=== PATIENT | male | born 1965 | race Two or more races ===

== ENCOUNTER 2025-04-17 21:26 | Inpatient (IN) | payer OTHER ==
[~2025-04-17] VITALS: Ht 177.8 cm; Wt 90.7 kg
[2025-04-17 21:26] VITALS: BP 125/73
[2025-04-17] MEDS ORDERED: TRANEXAMIC ACID 1,000 MG/10 ML VIAL ONE ×2 (21:50→22:45)
[2025-04-17] MEDS ORDERED: HYDROMORPHONE 1 MG/1 ML DISP.SYRIN ONE (21:55)
[2025-04-17] MEDS ORDERED: ONDANSETRON 4 MG/2 ML VIAL ONE (21:55)
[2025-04-17] MEDS: TRANEXAMIC ACID 1,000 MG/10 ML VIAL IR ONE ×2 (22:01→22:50)
[2025-04-17] MEDS: HYDROMORPHONE 1 MG/1 ML DISP.SYRIN IV ONE (22:03)
[2025-04-17] MEDS: IV NORMAL SALINE 1000 ML BAG IV ONE (22:03)
[2025-04-17] MEDS: ONDANSETRON 4 MG/2 ML VIAL IV ONE (22:03)
[2025-04-17 22:06] LABS: PLATELET COUNT (AUTO) 84 K/uL (152-348); RED BLOOD CELL COUNT(AUTO) 2.51 MIL/uL (4.06-5.63); RED CELL DISTRIBUTION WIDTH 15.3 % (12.1-16.2); WHITE BLOOD COUNT (AUTO) 4.5 K/uL (3.6-10.2)
[2025-04-17 22:11] LABS: CREATININE 1.0 mg/dL (0.6-1.3); SODIUM SERUM 139.0 mmol/L (136-145); UREA NITROGEN, BLOOD 32.0 mg/dL (7-18)
[2025-04-17 22:16] LABS: ASPARTATE AMINOTRANSFERASE 37.0 U/L (15-37); TOTAL PROTEIN, SERUM 6.6 g/dL (6.4-8.2)
[2025-04-17] MEDS ORDERED: LIDOCAINE 1%-EPI 1:100,000 20 ML VIAL ONE (22:39)
[2025-04-17] MEDS: LIDOCAINE 1%-EPI 1:100,000 20 ML VIAL IJ ONE (22:50)
[2025-04-17] MEDS ORDERED: AMIN30LI27 PO (22:54)
[2025-04-17] MEDS ORDERED: SENN-302 PO (22:54)
[2025-04-17] MEDS ORDERED: FOLI1TAB94 PO (22:54)
[2025-04-17] MEDS ORDERED: FURO20TA4 PO (22:54)
[2025-04-17] MEDS ORDERED: RIFA550T PO (22:54)
[2025-04-17] MEDS ORDERED: PROP20TA7 PO (22:54)
[2025-04-17] MEDS ORDERED: PANT40TA49 PO (22:54)
[2025-04-17] MEDS ORDERED: POTA-88 PO (22:54)
[2025-04-17] MEDS ORDERED: ASCO500C18 PO (22:54)
[2025-04-17] MEDS ORDERED: MAGN400T26 PO (22:54)
[2025-04-17] MEDS ORDERED: MELA5TAB21 PO (22:54)
[2025-04-17] MEDS ORDERED: MULT-1045 PO (22:54)
[2025-04-17] MEDS ORDERED: SPIR25TA PO (22:54)
[2025-04-17] MEDS ORDERED: CHOL200074 PO (22:54)
[2025-04-17] MEDS ORDERED: TEMA15CA PO (22:54)
[2025-04-17] MEDS ORDERED: DOCU100C36 PO (22:54)
[2025-04-17] MEDS ORDERED: LACT10SO58 PO (22:54)
[2025-04-17] MEDS ORDERED: CYAN50009 PO (22:54)
[2025-04-18] MEDS ORDERED: MAGNESIUM HYDROXIDE 30 ML LIQUID UDC PO PRN (00:30)
[2025-04-18 04:55] VITALS: BP 136/72; TEMP 97.9; O2SAT 100
[2025-04-18 06:49] LABS: PLATELET COUNT (AUTO) 70 K/uL (152-348); RED CELL DISTRIBUTION WIDTH 15.2 % (12.1-16.2); WHITE BLOOD COUNT (AUTO) 2.9 K/uL (3.6-10.2)
[2025-04-18 06:58] LABS: RED BLOOD CELL COUNT(AUTO) 2.22 MIL/uL (4.06-5.63)
[2025-04-18] MEDS: PANTOPRAZOLE SODIUM 40 MG TABLET.DR PO SCH (06:58)
[2025-04-18 07:02] LABS: CREATININE 0.7 mg/dL (0.6-1.3); SODIUM SERUM 141.0 mmol/L (136-145); UREA NITROGEN, BLOOD 25.0 mg/dL (7-18)
[2025-04-18] MEDS: SPIRONOLACTONE 25 MG TABLET PO SCH (08:38)
[2025-04-18] MEDS: DOCUSATE SODIUM 100 MG CAPSULE PO SCH (08:38)
[2025-04-18] MEDS: FOLIC ACID 1 MG TABLET PO SCH (08:39)
[2025-04-18] MEDS: FUROSEMIDE 20 MG TABLET PO SCH (08:39)
[2025-04-18] MEDS: LACTULOSE 20 G/30 ML LIQUID UDC PO SCH (08:39)
[2025-04-18] MEDS: MULTIVITAMINS,THERAPEUTIC TABLET PO SCH (08:40)
[2025-04-18] MEDS: MAGNESIUM OXIDE 400 MG TABLET PO SCH (08:40)
[2025-04-18] MEDS: CYANOCOBALAMIN 1,000 MCG TABLET PO SCH (08:40)
[2025-04-18] MEDS: ASCORBIC ACID 500 MG TABLET PO SCH (08:40)
[2025-04-18] MEDS: RIFAXIMIN 550 MG TABLET PO SCH (08:42)
[2025-04-18] MEDS ORDERED: PROPRANOLOL HCL 20 MG TABLET PO SCH ×2 (09:00)
[2025-04-18] MEDS ORDERED: AMINO ACIDS PO SCH (09:00)
[2025-04-18] MEDS ORDERED: PROTEIN HYDROLYS PO SCH (09:00)
[2025-04-18 09:17] LABS: LYMPHOCYTES % (MANUAL) 0 % (20-40); NEUTROPHILS % (MANUAL) 0 % (42-75)
[2025-04-18] MEDS ORDERED: ACET-73 PO (10:08)
[2025-04-18] MEDS ORDERED: ONDA4TAB5 PO (10:08)
[2025-04-18] MEDS ORDERED: SENN8.6T19 PO (10:08)
[2025-04-18] MEDS: MAGNESIUM OXIDE 400 MG TABLET PO ONE (10:19)
[2025-04-18 10:53] VITALS: BP 118/52; TEMP 98; O2SAT 97
[2025-04-18 16:00] VITALS: BP 120/60; TEMP 98; O2SAT 96
[2025-04-18] MEDS: PROPRANOLOL HCL 10 MG TABLET PO SCH (17:00)
[2025-04-18] MEDS: SENNOSIDES/DOCUSATE SODIUM TABLET PO SCH (17:05)
[2025-04-18] MEDS: PROTEIN SUPPLEMENT (PROSTAT) 30 ML LIQUID PO SCH (17:05)
[2025-04-18] MEDS: ONDANSETRON 4 MG/2 ML VIAL IV PRN (17:14)
[2025-04-18 19:00] VITALS: BP 121/63; TEMP 98.4; O2SAT 100
[2025-04-18] MEDS ORDERED: MELATONIN 5 MG PO SCH (21:00)
[2025-04-19] VITALS: BP 111/48; TEMP 98; O2SAT 100
[2025-04-19] MEDS: ACETAMINOPHEN 325 MG TABLET PO PRN (01:13)
[2025-04-19 04:00] VITALS: BP 119/61; TEMP 98.4; O2SAT 99
[2025-04-19 06:35] LABS: PLATELET COUNT (AUTO) 83 K/uL (152-348); RED CELL DISTRIBUTION WIDTH 15.1 % (12.1-16.2); WHITE BLOOD COUNT (AUTO) 4.0 K/uL (3.6-10.2)
[2025-04-19 06:46] LABS: RED BLOOD CELL COUNT(AUTO) 2.30 MIL/uL (4.06-5.63)
[2025-04-19 06:52] LABS: ASPARTATE AMINOTRANSFERASE 37 U/L (15-37); CREATININE 0.5 mg/dL (0.6-1.3); SODIUM SERUM 138 mmol/L (136-145); TOTAL PROTEIN, SERUM 6.4 g/dL (6.4-8.2); UREA NITROGEN, BLOOD 11 mg/dL (7-18)
[2025-04-19 07:01] LABS: IRON, SERUM 167 ug/dL (50-175)
[2025-04-19 07:04] LABS: EOSINOPHILS % (MANUAL) 1 % (0-8); LYMPHOCYTES % (MANUAL) 34 % (20-40); MONOCYTES % (MANUAL) 12 % (2-10); NEUTROPHILS % (MANUAL) 53 % (42-75); PLATELET ESTIMATE MARKED DECREASED
[2025-04-19 08:00] VITALS: BP 119/56; TEMP 98.5; O2SAT 98
[2025-04-19] MEDS: MAGNESIUM OXIDE 400 MG TABLET PO ONE (10:48)
[2025-04-19 11:49] VITALS: BP 145/67; TEMP 98.1; O2SAT 99
[2025-04-19 16:35] VITALS: BP 129/65; TEMP 97.6; O2SAT 99
[2025-04-19 20:26] VITALS: BP 137/69; TEMP 97.9; O2SAT 99
[2025-04-19] MEDS: MELATONIN 3 MG TABLET PO SCH (21:00)
[2025-04-19] MEDS: TEMAZEPAM 7.5 MG CAPSULE PO ONE (21:49)
[2025-04-20 04:34] VITALS: BP 117/63; TEMP 99.3; O2SAT 92
[2025-04-20 11:18] VITALS: BP 138/67; TEMP 98.3; O2SAT 98
[2025-04-20] MEDS: PHYTONADIONE 10 MG/1 ML AMPUL SQ ONE (12:24)
== END 2025-04-20 15:35 | DRG 810 ==
LOC: ER 21:51 → TELE3 04-18 00:15 → MEDSURG3 04-19 21:20
PROVIDERS: ATTEND Internal Medicine
PROC: 30233K1 Transfusion of Nonautologous Frozen Plasma into Peripheral Vein, Percutaneous Approach (ICD-10-PCS; principal; 2025-04-18)
PROC: 0W33XZZ Control Bleeding in Oral Cavity and Throat, External Approach (ICD-10-PCS; principal; 2025-04-18)
DX: K91.841 Postprocedural hemorrhage of a digestive system organ or structure following other procedure (principal); D61.818 Other pancytopenia; D68.4 Acquired coagulation factor deficiency; E44.1 Mild protein-calorie malnutrition; D69.6 Thrombocytopenia, unspecified; K76.6 Portal hypertension; E86.0 Dehydration; E83.42 Hypomagnesemia; Z68.28 Body mass index [BMI] 28.0-28.9, adult; Z74.09 Other reduced mobility; E66.9 Obesity, unspecified; M15.9 Polyosteoarthritis, unspecified; R00.1 Bradycardia, unspecified; Z79.899 Other long term (current) drug therapy; D53.9 Nutritional anemia, unspecified; K70.30 Alcoholic cirrhosis of liver without ascites
CPT/HCPCS: 36415; 70030-TC; 83550; 83735; 84100; 84443; 85018; 85025; 85610; 86803; 86850; 86900; 86901; 93005; A4606; A4663; G0378; J1171; J2405; J3430; J3490; J7040; P9059

== ENCOUNTER 2025-05-16 08:30 | Emergency (ER) | payer OTHER ==
[~2025-05-16] VITALS: Ht 172.7 cm; Wt 90.7 kg
[~2025-05-16 08:30] MED LIST: AMIN30LI27 PO; ASCO500C18 PO; CHOL200074 PO; CYAN50009 PO; DOCU100C36 PO; FOLI1TAB94 PO; FURO20TA4 PO; LACT10SO58 PO; MAGN400T26 PO; MELA5TAB21 PO; MULT-1045 PO; ONDA4TAB5 PO; PANT40TA49 PO; POTA-88 PO; PROP20TA7 PO; RIFA550T PO; SENN8.6T19 PO; SPIR25TA PO; TEMA15CA PO
[2025-05-16 09:34] LABS: PLATELET COUNT (AUTO) 77 K/uL (152-348); RED BLOOD CELL COUNT(AUTO) 2.62 MIL/uL (4.06-5.63); RED CELL DISTRIBUTION WIDTH 15.2 % (12.1-16.2); WHITE BLOOD COUNT (AUTO) 2.8 K/uL (3.6-10.2)
[2025-05-16 09:43] LABS: CREATININE 0.5 mg/dL (0.6-1.3); SODIUM SERUM 142 mmol/L (136-145); UREA NITROGEN, BLOOD 8 mg/dL (7-18)
[2025-05-16 09:48] LABS: ASPARTATE AMINOTRANSFERASE 36 U/L (15-37); TOTAL PROTEIN, SERUM 7.2 g/dL (6.4-8.2)
[2025-05-16] MEDS ORDERED: LACTULOSE 20 G/30 ML LIQUID UDC ONE (10:21)
[2025-05-16] MEDS ORDERED: PHYTONADIONE 10 MG/1 ML AMPUL ONE (10:21)
[2025-05-16] MEDS ORDERED: MAGNESIUM SULFATE/D5W 100 ML ONE (10:21)
[2025-05-16] MEDS: MAGNESIUM SULFATE/D5W 100 ML IV SCH (10:28)
[2025-05-16] MEDS: LACTULOSE 20 G/30 ML LIQUID UDC PO ONE (10:28)
[2025-05-16] MEDS: PHYTONADIONE 10 MG/1 ML AMPUL SQ ONE (10:28)
[2025-05-16] MEDS ORDERED: MAGNESIUM SULFATE/D5W 200 ML ONE (10:29)
[2025-05-16 10:59] LABS: *BILIRUBIN,URIN NEGATIVE (NEGATIVE); *BLOOD, URINE 1+ (NEGATIVE); *CLARITY,URINE CLEAR (CLEAR); *COLOR,URINE YELLOW (YELLOW); *KETONES,URINE NEGATIVE (NEGATIVE); *PROTEIN,URINE NEGATIVE (NEGATIVE); *UROBILINOGEN,URINE 1.0 E.U./dl (NORMAL); LEUKOCYTE ESTERASE ,URINE NEGATIVE (NEGATIVE); NITRITE, URINE NEGATIVE (NEGATIVE); UGLUCOSE NEGATIVE (NEGATIVE)
[2025-05-16 11:00] LABS: SQUAMOUS EPITHELIAL CELL,UR FEW /HPF (NONE SEEN)
[2025-05-16 12:32] LABS: EOSINOPHILS % (MANUAL) 1 % (0-8); LYMPHOCYTES % (MANUAL) 21 % (20-40); MONOCYTES % (MANUAL) 6 % (2-10); NEUTROPHILS % (MANUAL) 72 % (42-75); PLATELET ESTIMATE DECREASED
[2025-05-16] MEDS ORDERED: IBUPROFEN 400 MG TABLET ONE (13:11)
[2025-05-16 14:33] VITALS: BP 142/75
[2025-05-16] MEDS ORDERED: PHYT100T PO (15:05)
[2025-05-16] MEDS ORDERED: LACT10SO58 PO (15:05)
[2025-05-16] MEDS ORDERED: ONDA4TAB5 PO (15:05)
[2025-05-16] MEDS ORDERED: MAGN400C PO (15:05)
[2025-05-16 15:29] VITALS: BP 125/91; TEMP 98.1; O2SAT 96
== END 2025-05-16 15:30 | disposition home or self-care (01) ==
LOC: ER 08:30
DX: K74.60 Unspecified cirrhosis of liver (principal); D68.9 Coagulation defect, unspecified; D69.6 Thrombocytopenia, unspecified; R11.2 Nausea with vomiting, unspecified; E72.20 Disorder of urea cycle metabolism, unspecified; E83.42 Hypomagnesemia; K58.9 Irritable bowel syndrome, unspecified; R10.84 Generalized abdominal pain; R53.1 Weakness; Z87.448 Personal history of other diseases of urinary system; Z79.899 Other long term (current) drug therapy; Z98.890 Other specified postprocedural states; Z87.39 Personal history of other diseases of the musculoskeletal system and connective tissue; Z86.59 Personal history of other mental and behavioral disorders
CPT/HCPCS: 99285; 74176; 96365; 96366; 96375; 80076; 80048; 81001; 82140; 83735; 85007; 85027; 85730; 86850; 86900; 86901; 36415; 93005; J3475 ×2; J3430; 70030-TC; A4606; A4663

== ENCOUNTER 2025-06-09 18:44 | Inpatient (IN) | payer OTHER ==
[~2025-06-09] VITALS: Ht 177.8 cm; Wt 87.4 kg
[~2025-06-09 18:44] MED LIST changes: +PHYT100T PO; -POTA-88 PO
[2025-06-09] MEDS ORDERED: ALBUMIN HUMAN 25% 100 ML ONE (19:17)
[2025-06-09 19:21] LABS: PLATELET COUNT (AUTO) 96 K/uL (152-348); RED BLOOD CELL COUNT(AUTO) 2.82 MIL/uL (4.06-5.63); RED CELL DISTRIBUTION WIDTH 14.6 % (12.1-16.2); WHITE BLOOD COUNT (AUTO) 4.1 K/uL (3.6-10.2)
[2025-06-09 19:30] LABS: CREATININE 0.6 mg/dL (0.6-1.3); SODIUM SERUM 140 mmol/L (136-145); UREA NITROGEN, BLOOD 12 mg/dL (7-18)
[2025-06-09] MEDS ORDERED: ONDANSETRON 4 MG/2 ML VIAL ONE (19:33)
[2025-06-09 19:36] LABS: ASPARTATE AMINOTRANSFERASE 36 U/L (15-37); TOTAL PROTEIN, SERUM 7.0 g/dL (6.4-8.2)
[2025-06-09] MEDS: ONDANSETRON 4 MG/2 ML VIAL IV ONE (19:46)
[2025-06-09] MEDS: ALBUMIN HUMAN 25% 100 ML IV ONE (19:46)
[2025-06-09] MEDS ORDERED: RIFAXIMIN 550 MG TABLET ONE (19:54)
[2025-06-09] MEDS: RIFAXIMIN 200 MG TABLET PO STA (20:03)
[2025-06-09] MEDS: RIFAXIMIN 550 MG TABLET PO STA (20:03)
[2025-06-09] MEDS: LACTULOSE 20 G/30 ML LIQUID UDC PO ONE (20:03)
[2025-06-09] MEDS: MAGNESIUM OXIDE 400 MG TABLET PO ONE (20:03)
[2025-06-09 22:11] VITALS: BP 121/64
[2025-06-09] MEDS ORDERED: ACETAMINOPHEN 325 MG TABLET PO PRN (23:15)
[2025-06-09] MEDS ORDERED: REMEDY ESSENTIAL ZINC PASTE 113 GM TP PRN (23:15)
[2025-06-09 23:53] VITALS: BP 123/71; TEMP 97.6; O2SAT 100
[2025-06-10 05:41] VITALS: BP 157/75; TEMP 97.5; O2SAT 100
[2025-06-10] MEDS: PANTOPRAZOLE SODIUM 40 MG TABLET.DR PO SCH (06:15)
[2025-06-10 07:06] LABS: PLATELET COUNT (AUTO) 91 K/uL (152-348); RED BLOOD CELL COUNT(AUTO) 2.76 MIL/uL (4.06-5.63); RED CELL DISTRIBUTION WIDTH 14.4 % (12.1-16.2); WHITE BLOOD COUNT (AUTO) 3.5 K/uL (3.6-10.2)
[2025-06-10 07:45] LABS: CREATININE 0.5 mg/dL (0.6-1.3); SODIUM SERUM 138 mmol/L (136-145); UREA NITROGEN, BLOOD 7 mg/dL (7-18)
[2025-06-10] MEDS ORDERED: Medication Not On Formulary EA (Amino Acids/Protein Hydrolys (Pro-Stat Sugar Free Liquid PO SCH (08:00)
[2025-06-10 08:58] LABS: EOSINOPHILS % (MANUAL) 2 % (0-8); LYMPHOCYTES % (MANUAL) 34 % (20-40); MONOCYTES % (MANUAL) 10 % (2-10); NEUTROPHILS % (MANUAL) 54 % (42-75); PLATELET ESTIMATE DECREASED
[2025-06-10] MEDS ORDERED: PHYTONADIONE 100 MCG PO SCH (09:00)
[2025-06-10] MEDS ORDERED: RIFAXIMIN 550 MG TABLET PO SCH ×2 (09:00→14:00)
[2025-06-10 09:45] VITALS: BP 129/59; TEMP 97.8; O2SAT 99
[2025-06-10] MEDS: PROPRANOLOL HCL 20 MG TABLET PO SCH (10:01)
[2025-06-10] MEDS: MAGNESIUM OXIDE 400 MG TABLET PO SCH (10:02)
[2025-06-10] MEDS: DOCUSATE SODIUM 100 MG CAPSULE PO SCH (10:02)
[2025-06-10] MEDS: CYANOCOBALAMIN 100 MCG TABLET PO SCH (10:02)
[2025-06-10] MEDS: ASCORBIC ACID 500 MG TABLET PO SCH (10:03)
[2025-06-10] MEDS: SPIRONOLACTONE 25 MG TABLET PO SCH (10:03)
[2025-06-10] MEDS: ONDANSETRON 4 MG/2 ML VIAL IV PRN (10:04)
[2025-06-10] MEDS: LACTULOSE 20 G/30 ML LIQUID UDC PO SCH (10:04)
[2025-06-10] MEDS: MULTIVITAMINS,THERAPEUTIC TABLET PO SCH (10:05)
[2025-06-10] MEDS: FUROSEMIDE 20 MG TABLET PO SCH (10:09)
[2025-06-10 11:06] VITALS: BP 135/52; TEMP 98.4; O2SAT 98
[2025-06-10] MEDS ORDERED: POTA-88 PO (14:50)
[2025-06-10] MEDS ORDERED: ACET-73 PO (14:51)
[2025-06-10] MEDS ORDERED: LIDO1ADH82 TP (14:51)
[2025-06-10 15:22] VITALS: BP 113/50; TEMP 98.1; O2SAT 96
[2025-06-10] MEDS: PROTEIN SUPPLEMENT (PROSTAT) 30 ML LIQUID PO SCH (17:31)
[2025-06-10] MEDS: FOLIC ACID 1 MG TABLET PO SCH (17:34)
[2025-06-10] MEDS ORDERED: MIDODRINE HCL 5 MG TABLET PO ONE (20:53)
[2025-06-10] MEDS: SENNOSIDES 1 TABLET PO SCH (21:37)
[2025-06-10] MEDS: RIFAXIMIN 550 MG TABLET PO SCH (21:37)
[2025-06-10] MEDS: TEMAZEPAM 7.5 MG CAPSULE PO SCH (21:38)
[2025-06-10 21:39] VITALS: BP 112/55; TEMP 98.8; O2SAT 99
[2025-06-11 04:00] VITALS: BP 113/58; TEMP 98.4; O2SAT 100
[2025-06-11 07:06] LABS: PLATELET COUNT (AUTO) 89 K/uL (152-348); RED BLOOD CELL COUNT(AUTO) 2.56 MIL/uL (4.06-5.63); RED CELL DISTRIBUTION WIDTH 14.6 % (12.1-16.2); WHITE BLOOD COUNT (AUTO) 3.3 K/uL (3.6-10.2)
[2025-06-11 07:28] LABS: ASPARTATE AMINOTRANSFERASE 28 U/L (15-37); CREATININE 0.5 mg/dL (0.6-1.3); SODIUM SERUM 142 mmol/L (136-145); TOTAL PROTEIN, SERUM 6.4 g/dL (6.4-8.2); UREA NITROGEN, BLOOD 7 mg/dL (7-18)
[2025-06-11 10:52] VITALS: BP 126/85; TEMP 97.6; O2SAT 96
[2025-06-11] MEDS: OXYCODONE HCL 5 MG TABLET PO PRN (12:29)
[2025-06-11 14:59] VITALS: BP 140/73; TEMP 97.7; O2SAT 99
[2025-06-11 18:20] VITALS: BP 119/55; TEMP 98.8; O2SAT 98
== END 2025-06-11 19:37 | DRG 280 ==
LOC: ER 18:47 → MEDSURG3 22:20
PROVIDERS: ADMIT Nurse Practitioner Family; ATTEND Internal Medicine
DX: K76.82 Hepatic encephalopathy (principal); K70.30 Alcoholic cirrhosis of liver without ascites; D68.4 Acquired coagulation factor deficiency; D62 Acute posthemorrhagic anemia; D61.818 Other pancytopenia; K91.841 Postprocedural hemorrhage of a digestive system organ or structure following other procedure; E86.0 Dehydration; R41.82 Altered mental status, unspecified; K76.6 Portal hypertension; E66.9 Obesity, unspecified; Z68.27 Body mass index [BMI] 27.0-27.9, adult; E83.42 Hypomagnesemia; Z79.899 Other long term (current) drug therapy; R00.1 Bradycardia, unspecified; K21.9 Gastro-esophageal reflux disease without esophagitis; K58.9 Irritable bowel syndrome, unspecified
CPT/HCPCS: 36415; 70030-TC; 70450; 83690; 83735; 84100; 84443; 84481; 85025; 85610; A4606; A4663; G0378; J2405; P9047

== ENCOUNTER 2025-07-01 18:58 | Inpatient (IN) | payer OTHER ==
[~2025-07-01] VITALS: Ht 177.8 cm; Wt 84.6 kg
[2025-07-01 18:58] VITALS: BP 115/63
[~2025-07-01 18:58] MED LIST changes: -DOCU100C36 PO; +LIDO1ADH82 TP; -PHYT100T PO; +POTA-88 PO; -SENN8.6T19 PO
[2025-07-01] MEDS ORDERED: FERR325T28 PO (19:38)
[2025-07-01] MEDS ORDERED: AMIN30LI2 PO (19:38)
[2025-07-01] MEDS ORDERED: SENN8.6T19 PO (19:38)
[2025-07-01] MEDS ORDERED: DOCU100T2 PO (19:38)
[2025-07-01] MEDS ORDERED: VITA40TA PO (19:38)
[2025-07-01] MEDS ORDERED: DOCU100C36 PO (19:38)
[2025-07-01 20:07] LABS: CREATININE 0.7 mg/dL (0.6-1.3); SODIUM SERUM 143 mmol/L (136-145); UREA NITROGEN, BLOOD 11 mg/dL (7-18)
[2025-07-01 20:13] LABS: ASPARTATE AMINOTRANSFERASE 31 U/L (15-37); PLATELET COUNT (AUTO) 91 K/uL (152-348); RED BLOOD CELL COUNT(AUTO) 2.43 MIL/uL (4.06-5.63); RED CELL DISTRIBUTION WIDTH 14.4 % (12.1-16.2); TOTAL PROTEIN, SERUM 6.4 g/dL (6.4-8.2); WHITE BLOOD COUNT (AUTO) 4.7 K/uL (3.6-10.2)
[2025-07-01 21:01] LABS: *BLOOD, URINE NEGATIVE (NEGATIVE); *CLARITY,URINE CLEAR (CLEAR); *COLOR,URINE YELLOW (YELLOW); *KETONES,URINE 1+ (NEGATIVE); *PROTEIN,URINE TRACE (NEGATIVE); *UROBILINOGEN,URINE 4.0 E.U./dl (NORMAL); LEUKOCYTE ESTERASE ,URINE NEGATIVE (NEGATIVE); NITRITE, URINE NEGATIVE (NEGATIVE); UGLUCOSE TRACE (NEGATIVE)
[2025-07-01 21:10] LABS: *BILIRUBIN,URIN 2+ (NEGATIVE)
[2025-07-01 21:33] LABS: SQUAMOUS EPITHELIAL CELL,UR MODERATE /HPF (NONE SEEN)
[2025-07-01] MEDS ORDERED: ENOXAPARIN SODIUM 40 MG/0.4 ML DISP.SYRIN SQ ONE (22:45)
[2025-07-01] MEDS ORDERED: REMEDY ESSENTIAL ZINC PASTE 113 GM TP PRN (22:45)
[2025-07-01] MEDS ORDERED: MAGNESIUM HYDROXIDE 30 ML LIQUID UDC PO PRN (22:45)
[2025-07-01] MEDS ORDERED: ONDANSETRON 4 MG/2 ML VIAL IV PRN (22:45)
[2025-07-02 00:30] VITALS: BP 122/57; TEMP 97.9; O2SAT 100
[2025-07-02] MEDS: ENOXAPARIN SODIUM 40 MG/0.4 ML DISP.SYRIN SQ ONE (01:46)
[2025-07-02] MEDS: PANTOPRAZOLE SODIUM 40 MG TABLET.DR PO SCH (06:44)
[2025-07-02 06:54] LABS: PLATELET COUNT (AUTO) 78 K/uL (152-348); RED CELL DISTRIBUTION WIDTH 15.0 % (12.1-16.2); WHITE BLOOD COUNT (AUTO) 3.2 K/uL (3.6-10.2)
[2025-07-02 07:01] LABS: RED BLOOD CELL COUNT(AUTO) 2.27 MIL/uL (4.06-5.63)
[2025-07-02 07:09] LABS: CREATININE 0.6 mg/dL (0.6-1.3); SODIUM SERUM 143 mmol/L (136-145); UREA NITROGEN, BLOOD 10 mg/dL (7-18)
[2025-07-02 07:11] VITALS: BP 109/62; TEMP 97.8; O2SAT 99
[2025-07-02] MEDS: FUROSEMIDE 20 MG TABLET PO SCH (10:23)
[2025-07-02] MEDS: MAGNESIUM OXIDE 400 MG TABLET PO ONE (10:23)
[2025-07-02] MEDS: SPIRONOLACTONE 25 MG TABLET PO SCH (10:23)
[2025-07-02] MEDS: LACTULOSE 20 G/30 ML LIQUID UDC PO ONE (10:33)
[2025-07-02 12:00] VITALS: BP 116/61; TEMP 98.1; O2SAT 98
[2025-07-02 16:11] VITALS: BP 117/61; TEMP 98.1; O2SAT 100
[2025-07-02] MEDS: PROPRANOLOL HCL 20 MG TABLET PO SCH (16:24)
[2025-07-02] MEDS: LACTULOSE 20 G/30 ML LIQUID UDC PO SCH ×2 (16:24→16:54)
[2025-07-02] MEDS ORDERED: SERT25TA PO (16:32)
[2025-07-02] MEDS: RIFAXIMIN 550 MG TABLET PO SCH (16:55)
[2025-07-02] MEDS: SERTRALINE HCL 50 MG TABLET PO SCH (16:56)
[2025-07-02 19:45] VITALS: BP 117/57; TEMP 98.9; O2SAT 97
[2025-07-02] MEDS: ENOXAPARIN SODIUM 40 MG/0.4 ML DISP.SYRIN SQ SCH (20:29)
[2025-07-02] MEDS ORDERED: ENOXAPARIN SODIUM 40 MG/0.4 ML DISP.SYRIN SQ SCH (21:00)
[2025-07-02] MEDS: ACETAMINOPHEN 325 MG TABLET PO PRN (21:02)
[2025-07-03 05:10] VITALS: BP 127/67; TEMP 98.2; O2SAT 96
[2025-07-03 06:36] LABS: PLATELET COUNT (AUTO) 92 K/uL (152-348); RED BLOOD CELL COUNT(AUTO) 2.66 MIL/uL (4.06-5.63); RED CELL DISTRIBUTION WIDTH 14.9 % (12.1-16.2); WHITE BLOOD COUNT (AUTO) 3.0 K/uL (3.6-10.2)
[2025-07-03] MEDS ORDERED: PANTOPRAZOLE SODIUM 40 MG TABLET.DR PO SCH (07:00)
[2025-07-03 07:01] LABS: CREATININE 0.5 mg/dL (0.6-1.3); SODIUM SERUM 142 mmol/L (136-145); UREA NITROGEN, BLOOD 7 mg/dL (7-18)
[2025-07-03 08:21] VITALS: BP 130/55; TEMP 98.1; O2SAT 96
[2025-07-03 08:26] LABS: EOSINOPHILS % (MANUAL) 2 % (0-8); LYMPHOCYTES % (MANUAL) 34 % (20-40); MONOCYTES % (MANUAL) 9 % (2-10); NEUTROPHILS % (MANUAL) 55 % (42-75); PLATELET ESTIMATE DECREASED
[2025-07-03] MEDS: FOLIC ACID 1 MG TABLET PO SCH (09:09)
[2025-07-03] MEDS: FERROUS SULFATE 325 MG TABEC PO SCH (09:09)
[2025-07-03] MEDS ORDERED: SPIR25TA PO (09:27)
[2025-07-03] MEDS ORDERED: FURO20TA4 PO (09:27)
[2025-07-03] MEDS: MAGNESIUM OXIDE 400 MG TABLET PO ONE (11:21)
[2025-07-03 11:56] VITALS: BP 113/57; TEMP 98; O2SAT 97
== END 2025-07-03 15:35 | DRG 663 ==
LOC: ER 18:58 → TELE3 23:00 → MEDSURG3 07-02 08:15
PROVIDERS: ADMIT Student in an Organized Health Care Education/Training Program; ATTEND Internal Medicine
DX: D50.9 Iron deficiency anemia, unspecified (principal); D61.818 Other pancytopenia; K76.82 Hepatic encephalopathy; K70.30 Alcoholic cirrhosis of liver without ascites; M62.81 Muscle weakness (generalized); E83.39 Other disorders of phosphorus metabolism; Z74.09 Other reduced mobility; Z79.899 Other long term (current) drug therapy; R26.81 Unsteadiness on feet; K21.9 Gastro-esophageal reflux disease without esophagitis
CPT/HCPCS: 36415; 70030-TC; 71045; 76705; 83605; 83735; 84100; 84443; 84484; 85025; 85730; 86850; 86900; 86901; 87040; 87086; A4663; G0378; J1650

== ENCOUNTER 2025-08-17 14:13 | Inpatient (IN) | payer OTHER ==
[~2025-08-17] VITALS: Ht 172.7 cm; Wt 72.6 kg
[~2025-08-17 14:13] MED LIST changes: +AMIN30LI2 PO; -AMIN30LI27 PO; +DOCU100C36 PO; +FERR325T28 PO; -LIDO1ADH82 TP; -MELA5TAB21 PO; -ONDA4TAB5 PO; +POTA-366 PO; -POTA-88 PO; +SENN8.6T19 PO; +SERT25TA PO; +VITA40TA PO
[2025-08-17 14:15] VITALS: BP 103/61
[2025-08-17] MEDS ORDERED: IBUP-1953 PO (14:29)
[2025-08-17] MEDS ORDERED: LIDO1ADH82 TP (14:29)
[2025-08-17] MEDS ORDERED: CITA20TA16 PO (14:29)
[2025-08-17] MEDS ORDERED: ONDA-104 PO (14:29)
[2025-08-17] MEDS ORDERED: FURO20TA4 PO (14:33)
[2025-08-17 14:57] LABS: CREATININE 0.6 mg/dL (0.6-1.3); SODIUM SERUM 139 mmol/L (136-145); UREA NITROGEN, BLOOD 6 mg/dL (7-18)
[2025-08-17 15:00] LABS: PLATELET COUNT (AUTO) 96 K/uL (152-348); RED BLOOD CELL COUNT(AUTO) 2.54 MIL/uL (4.06-5.63); RED CELL DISTRIBUTION WIDTH 15.5 % (12.1-16.2); WHITE BLOOD COUNT (AUTO) 3.8 K/uL (3.6-10.2)
[2025-08-17 15:04] LABS: ASPARTATE AMINOTRANSFERASE 31 U/L (15-37); TOTAL PROTEIN, SERUM 6.7 g/dL (6.4-8.2)
[2025-08-17 15:16] LABS: ETHANOL < 3 MG/DL (0-10)
[2025-08-17] MEDS ORDERED: LACTULOSE 20 G/30 ML LIQUID UDC ONE (15:22)
[2025-08-17] MEDS ORDERED: ONDANSETRON 4 MG/2 ML VIAL ONE (15:22)
[2025-08-17] MEDS ORDERED: MORPHINE SULFATE 4 MG/1 ML DISP.SYRIN ONE (15:22)
[2025-08-17] MEDS: MORPHINE SULFATE 4 MG/1 ML DISP.SYRIN IV ONE (15:29)
[2025-08-17] MEDS: LACTULOSE 20 G/30 ML LIQUID UDC PO ONE (15:29)
[2025-08-17] MEDS: ONDANSETRON 4 MG/2 ML VIAL IV ONE (15:30)
[2025-08-17] MEDS: FOLIC ACID 1 MG TABLET PO SCH (18:29)
[2025-08-17] MEDS: MULTIVITAMINS,THERAPEUTIC TABLET PO SCH (18:29)
[2025-08-17] MEDS ORDERED: OXYCODONE HCL 5 MG TABLET PO PRN (18:45)
[2025-08-17] MEDS ORDERED: ONDANSETRON 4 MG/2 ML VIAL IV PRN (18:45)
[2025-08-17 19:25] VITALS: BP 121/56; TEMP 98.1; O2SAT 96
[2025-08-17] MEDS ORDERED: FUROSEMIDE 20 MG TABLET PO SCH (21:00)
[2025-08-17] MEDS: LACTULOSE 20 G/30 ML LIQUID UDC PO SCH (21:48)
[2025-08-17] MEDS: MAGNESIUM OXIDE 400 MG TABLET PO SCH (21:48)
[2025-08-17] MEDS: CITALOPRAM 20 MG TABLET PO SCH (21:49)
[2025-08-18 05:47] VITALS: BP 111/61; TEMP 98.3; O2SAT 97
[2025-08-18] MEDS: PANTOPRAZOLE SODIUM 40 MG TABLET.DR PO SCH (06:18)
[2025-08-18] MEDS ORDERED: PANTOPRAZOLE SODIUM 40 MG TABLET.DR PO SCH (07:00)
[2025-08-18 07:30] LABS: PLATELET COUNT (AUTO) 83 K/uL (152-348); RED CELL DISTRIBUTION WIDTH 16.1 % (12.1-16.2); WHITE BLOOD COUNT (AUTO) 3.0 K/uL (3.6-10.2)
[2025-08-18 07:47] LABS: RED BLOOD CELL COUNT(AUTO) 2.46 MIL/uL (4.06-5.63)
[2025-08-18 07:49] LABS: ASPARTATE AMINOTRANSFERASE 30 U/L (15-37); CREATININE 0.5 mg/dL (0.6-1.3); SODIUM SERUM 141 mmol/L (136-145); TOTAL PROTEIN, SERUM 6.4 g/dL (6.4-8.2); UREA NITROGEN, BLOOD 6 mg/dL (7-18)
[2025-08-18 07:51] LABS: IRON, SERUM 138 ug/dL (50-175)
[2025-08-18] MEDS: SERTRALINE HCL 50 MG TABLET PO SCH (08:12)
[2025-08-18] MEDS ORDERED: POTASSIUM CHLORIDE 20 MEQ TAB.PRT.SR PO SCH (09:00)
[2025-08-18] MEDS ORDERED: FERROUS SULFATE 325 MG TABEC PO SCH (09:00)
[2025-08-18 11:30] VITALS: BP 108/55; TEMP 98; O2SAT 98
[2025-08-18] MEDS: MAGNESIUM OXIDE 400 MG TABLET PO ONE (13:07)
[2025-08-18 15:47] VITALS: BP 107/52; TEMP 98.4; O2SAT 98
[2025-08-18 20:00] VITALS: BP 98/48; TEMP 99.2; O2SAT 93
[2025-08-19 06:16] VITALS: BP 106/56; TEMP 98.3; O2SAT 97
[2025-08-19 08:00] VITALS: BP 114/56; TEMP 98.4; O2SAT 99
[2025-08-19 11:57] VITALS: BP 107/58; TEMP 98.6; O2SAT 97
[2025-08-19 15:17] LABS: PLATELET COUNT (AUTO) 83 K/uL (152-348); RED CELL DISTRIBUTION WIDTH 16.3 % (12.1-16.2); WHITE BLOOD COUNT (AUTO) 3.8 K/uL (3.6-10.2)
[2025-08-19 15:21] LABS: RED BLOOD CELL COUNT(AUTO) 2.48 MIL/uL (4.06-5.63)
[2025-08-19 15:27] LABS: CREATININE 0.5 mg/dL (0.6-1.3); SODIUM SERUM 139 mmol/L (136-145); UREA NITROGEN, BLOOD 5 mg/dL (7-18)
[2025-08-19 15:32] LABS: ASPARTATE AMINOTRANSFERASE 32 U/L (15-37); TOTAL PROTEIN, SERUM 6.3 g/dL (6.4-8.2)
[2025-08-19 15:55] VITALS: BP 101/54; TEMP 98.1; O2SAT 100
[2025-08-19 16:07] LABS: EOSINOPHILS % (MANUAL) 1 % (0-8); LYMPHOCYTES % (MANUAL) 37 % (20-40); MONOCYTES % (MANUAL) 10 % (2-10); NEUTROPHILS % (MANUAL) 52 % (42-75); NUCLEATED RED BLOOD CELLS 2.0 /100WBC; PLATELET ESTIMATE DECREASED
[2025-08-19 19:00] VITALS: BP 113/73; TEMP 98.4; O2SAT 95
[2025-08-20 04:00] VITALS: BP 102/53; TEMP 97.7; O2SAT 99
[2025-08-20 06:56] LABS: PLATELET COUNT (AUTO) 80 K/uL (152-348); RED CELL DISTRIBUTION WIDTH 16.1 % (12.1-16.2); WHITE BLOOD COUNT (AUTO) 3.5 K/uL (3.6-10.2)
[2025-08-20 07:00] LABS: RED BLOOD CELL COUNT(AUTO) 2.49 MIL/uL (4.06-5.63)
[2025-08-20 07:22] LABS: CREATININE 0.5 mg/dL (0.6-1.3); SODIUM SERUM 140 mmol/L (136-145); UREA NITROGEN, BLOOD 3 mg/dL (7-18)
[2025-08-20] MEDS: ENSURE WITH FIBER 237 ML LIQUID (CHOCOLATE) PO SCH (08:54)
[2025-08-20] MEDS: RIFAXIMIN 550 MG TABLET PO SCH (08:54)
[2025-08-20 12:00] VITALS: BP 113/61; TEMP 97.6; O2SAT 97
[2025-08-20] MEDS: MAGNESIUM OXIDE 400 MG TABLET PO ONE (12:23)
[2025-08-20] MEDS ORDERED: RIFA550T PO (13:32)
[2025-08-20 16:00] VITALS: BP 125/66; TEMP 98.2; O2SAT 96
== END 2025-08-20 17:00 | DRG 280 ==
LOC: ER 14:28 → MEDSURG3 16:13
PROVIDERS: ADMIT Internal Medicine; ATTEND Internal Medicine
DX: K76.82 Hepatic encephalopathy (principal); K70.30 Alcoholic cirrhosis of liver without ascites; E44.0 Moderate protein-calorie malnutrition; D61.818 Other pancytopenia; D68.9 Coagulation defect, unspecified; I95.9 Hypotension, unspecified; K76.6 Portal hypertension; E88.09 Other disorders of plasma-protein metabolism, not elsewhere classified; E83.42 Hypomagnesemia; R26.81 Unsteadiness on feet; Z86.39 Personal history of other endocrine, nutritional and metabolic disease; Z91.81 History of falling; R00.1 Bradycardia, unspecified; Z79.899 Other long term (current) drug therapy; Z86.718 Personal history of other venous thrombosis and embolism; E83.118 Other hemochromatosis; T45.4X5A Adverse effect of iron and its compounds, initial encounter; Y92.099 Unspecified place in other non-institutional residence as the place of occurrence of the external cause; M62.81 Muscle weakness (generalized); K58.9 Irritable bowel syndrome, unspecified; K21.9 Gastro-esophageal reflux disease without esophagitis
CPT/HCPCS: 36415; 70030-TC; 70450; 71045; 74018; 83550; 83690; 83735; 84100; 84443; 84484; 85025; 85730; A4606; A4663; G0378; G0480; J2270; J2405